=== PATIENT | male | born 1975 | race Two or more races ===

== ENCOUNTER 2021-08-28 17:30 | Emergency (ER) | payer BC ==
[~2021-08-28] VITALS: Ht 180.3 cm; Wt 95.3 kg
[2021-08-28] MEDS ORDERED: AMIODARONE 150 MG/3 ML VIAL IV ONE (17:58)
[2021-08-28] MEDS ORDERED: ADENOSINE 6 MG/2 ML VIAL IVP ONE (18:00)
[2021-08-28] MEDS ORDERED: ADENOSINE 6 MG/2 ML VIAL ONE (18:02)
--- NOTE | 2021-08-28 18:05 | NUR ---
Prepared for cardioversion per ACLS protocol. All Emergency equipment available and on standby. Dr Liao at bedside. Pt made aware of plan and verbally consents.
--- NOTE | 2021-08-28 18:08 | NUR ---
Adenosine given as ordered w/good response. Now NSR
[2021-08-28 18:11] LABS: BASOPHILS # (AUTO) 0.1 K/uL (0.0-0.2); BASOPHILS % (AUTO) 0.5 % (0.0-2.0); EOSINOPHILS % (AUTO) 3.4 % (0.0-6.0); HEMATOCRIT 43 % (39-51); HEMOGLOBIN 14.6 g/dL (13.5-17.5); LYMPHOCYTES # (AUTO) 4.8 K/uL (0.8-4.8); LYMPHOCYTES % (AUTO) 38.8 % (20.0-44.0); MEAN CORPUSCULAR HGB CONC 34 g/dl (31.0-36.0); MEAN CORPUSCULAR VOLUME 92 fL (80-96); MONOCYTES # (AUTO) 1.1 K/uL (0.1-1.30); MONOCYTES % (AUTO) 8.5 % (2.0-12.0); NEUTROPHILS # (AUTO) 6.1 K/uL (1.8-8.9); NEUTROPHILS % (AUTO) 48.8 % (43.0-81.0); PLATELET COUNT (AUTO) 205 K/uL (150-450); RED BLOOD CELL COUNT(AUTO) 4.64 MIL/uL (4.5-6.0); WHITE BLOOD COUNT (AUTO) 12.4 K/uL (4.3-11.0)
--- NOTE | 2021-08-28 18:20 | NUR ---
Reclining in bed NO distress noted. Aware of plan of care.
[2021-08-28] MEDS ORDERED: METO25TA4 PO (18:31)
[2021-08-28] MEDS ORDERED: LOSA25TA27 PO (18:31)
[2021-08-28] MEDS ORDERED: CETI-90 PO (18:33)
[2021-08-28] MEDS ORDERED: MULT-447 PO (18:33)
[2021-08-28] MEDS ORDERED: LACT1CAP71 PO (18:33)
[2021-08-28 18:59] LABS: CREATININE 1.2 mg/dL (0.6-1.3); POTASSIUM 3.8 mmol/L (3.5-5.1)
[2021-08-28 19:53] VITALS: BP 134/85
--- NOTE | 2021-08-28 20:12 | NUR ---
Patient discharged to home in stable condition. Written and verbal after care instructions given. Patient verbalizes understanding of instruction.
[2021-08-28 22:52] LABS: CALCIUM, SERUM 9.4 mg/dL (8.5-10.1)
== END 2021-08-28 20:15 | disposition home or self-care (01) ==
LOC: ER 17:35
DX: I47.1 Supraventricular tachycardia (principal); Z79.899 Other long term (current) drug therapy
CPT/HCPCS: 36415; 80048; 85025; 93005 ×2; 96374; 99284; J0153; J0282; J7030